=== PATIENT | female | born 1975 | race Caucasian/White ===

== ENCOUNTER 2022-10-22 23:19 | Observation (INO) | payer BC, SELFPAY ==
--- NOTE | ~2022-10-22 | XR_ITS ---
EXAMINATION: XR chest 1V portable DATE: 10/23/2022 01:04 INDICATION: Hyponatremia. TECHNIQUE: A single frontal view of the chest was obtained. COMPARISON: Chest single view 08/28/2017 FINDINGS: The chest demonstrates clear lungs without pneumonia, pleural effusion, or pneumothorax. Th e heart size is normal. IMPRESSION: 1. No acute cardiopulmonary disease. Reviewed, dictated and finalized at location [facility]. [facility] [employer]
[2022-10-22 23:25] VITALS: BP 169/110; PULSE 83; RESP 20; TEMP 36.3; O2SAT 97
--- NOTE | 2022-10-22 23:25 | ED.ABDPAIN ---
HPI - Abdominal Pain General Chief Complaint: Abdominal Pain Stated Complaint: abd pain Time Seen by Provider: 10/22/22 23:25 Source: patient Mode of arrival: ambulatory Limitations: no limitations History of Present Illness HPI narrative: 47-year-old female with obesity, GERD, chronic left hip pain, anxiety, allergic bronchitis presents to the ER with a 10 day history of --intermittent epigastric discomfort. no fever. No nausea / vomiting / diarrhea. She had a stomach flu around 10 days ago. MD elicited complaint: abdominal pain Onset (ago): day(s) ( Off and on for the past 10 days) Pain Consistency: intermittent Location: epigastric Severity: moderate Quality: aching Radiation: none Migration to: no migration Relieving factors: nothing Associated symptoms: denies other symptoms Related Data Hx Last Menstrual Period: 1 year ago Patient : No Home Medications Medication Instructions Recorded Confirmed hydrocodone 5 mg-acetaminophen 325 1 tablet PO Q4H PRN Pain 10/22/22 10/22/22 mg tablet omeprazole magnesium 20 mg 20 mg PO DAILY 10/22/22 10/22/22 tablet,delayed release (Prilosec OTC) Allergies Allergy/AdvReac Type Severity Reaction Status Date / Time No Known Allergies Allergy Verified 10/22/22 23:35 Review of Systems Review of Systems: All systems reviewed & are unremarkable except as noted in HPI and below Constitutional: Constitutional: Reports as per HPI and Reports no additional constitutional complaints Eyes: Eyes: Reports as per HPI and Reports no additional eye complaints ENT: Reports system reviewed and no additional complaints, except as documented and Reports as per HPI Cardiovascular: Cardiovascular: Reports as per HPI and Reports no additional cardiovascular complaints Respiratory: Respiratory: Reports as per HPI and Reports no additional respiratory complaints Gastrointestinal: Gastrointestinal: Reports as per HPI, Reports no additional gastrointestinal complaints and Reports abdominal pain Comments: epigastric abdominal pain Genitourinary: Genitourinary: Reports no additional female genitourinary complaints and Reports as per HPI Musculoskeletal: Musculoskeletal: Reports no additional musculoskeletal complaints and Reports as per HPI Integumentary/Breasts: Skin/Breast: Reports system reviewed and no additional complaints, except as docu and Reports as per HPI Neurologic: Reports system reviewed and no additional complaints, except as documented and Reports as per HPI Psychiatric: Psychiatric: Reports no additional psychiatric complaints and Reports as per HPI Endocrine: Endocrine: Reports no additional endocrine complaints and Reports as per HPI Hematologic/Lymphatic: Hematologic/Lymphatic: Reports no additional hematologic/lymphatic complaints and Reports as per HPI Allergic/Immunologic: Allergic/Immunologic: Reports no additional allergic/immunologic complaints and Reports as per HPI [facility] Past Medical History Medical History (Updated 10/23/22 @ 01:06 by Alhaji Harris MD) Anxiety GERD (gastroesophageal reflux disease) Left hip pain Social History Social History (Updated 10/23/22 @ 01:06 by Alhaji Harris MD) Social History: nonsmoker. No history of alcohol or drug use. Exam Const: General: healthy appearing and no acute distress Nutritional Appearance: well nourished Orientation/consciousness: patient oriented x3 Limitations: no limitations HENMT: Head: normal to inspection Ears: external ears normal Face/Nose/Sinus: Normal external nose present Face and sinus: normal facial exam Mouth: Yes Normal oral and palatal mucosa present Teeth and gingiva: dentition normal Throat: posterior oropharynx normal Eyes: Conjunctivae: conjunctivae normal Pupils: Equal, round and reactive pupils present EOM: EOMs intact bilaterally Direct Ophthalmoscopy: no photophobia Neck: Neck: normal visual inspection, no lymphadenopathy and no men
[2022-10-22 23:56] LABS: Basophils Absolute Auto 0.03 K/mm3 (0.00-0.10); Basophils Percent Auto 0.5 % (0.0-1.0); Eosinophils Absolute Auto 0.05 K/mm3 (0.02-0.50); Eosinophils Percent Auto 0.9 % (1.0-6.0); Hematocrit 40.9 % (35.0-49.0); Hemoglobin 13.2 g/dL (12.0-15.0); Immature Granulocyte Absolute 0.01 K/mm3 (0.00-0.00); Immature Granulocyte Percent A 0.2 % (0.0-0.0); Lymphocytes Absolute Auto 2.87 K/mm3 (1.10-4.50); Lymphocytes Percent Auto 50.7 % (18.0-42.0); Mean Corpuscular HGB Conc 32.3 g/dL (32.0-36.0); Mean Corpuscular Hemoglobin 29.4 pg (27.0-31.0); Mean Corpuscular Volume 91.1 fL (78.0-102.0); Mean Platelet Volume 9.4 fl (9.2-11.8); Monocytes Absolute Auto 0.51 K/mm3 (0.10-0.90); Neutrophils Absolute Auto 2.2 K/mm3 (1.7-7.2); Neutrophils Percent Auto 38.7 % (50.0-70.0); Platelet Count Result 263 K/mm3 (150-420); Red Blood Count 4.49 M/mm3 (4.20-5.40); Red Cell Distribution Width 12.6 % (11.6-14.4); White Blood Count 5.7 K/mm3 (4.8-10.8)
[2022-10-23 00:01] LABS: Add Urine Microscopic? NO; Appearance Urine Clear (Clear); Bilirubin Urine Negative (Negative); Blood Urine Negative (Negative); Color Urine Light Yellow (Yellow); Glucose Urine UA Negative (Negative); Ketones Urine Negative (Negative); Leukocyte Esterase Ur Negative LEU/UL (Negative); Nitrate Urine Negative (Negative); Protein Urine Negative (Negative); Specific Grav Ur 1.015 (1.010-1.020); Urobilinogen Urine 0.2 mg/dL (0.2-1.0); pH Urine 6.5 (5.0-8.0)
[2022-10-23 00:04] LABS: Pregnancy On Board Control Positive; Urine Pregnancy Test Negative
[2022-10-23 00:09] LABS: Prothrombin Time 10.9 Seconds (9.50-12.10)
[2022-10-23 00:17] LABS: Lactic Acid Reflex 0.8 mmol/L (0.4-2.0)
[2022-10-23 00:23] LABS: Alanine Aminotransferase 39 U/L (14-59); Albumin Level 3.4 g/dL (3.4-5.0); Alkaline Phosphatase 67 U/L (46-116); Anion Gap -2 mmol/L (8-16); Aspartate Amino Transferase 29 U/L (15-37); Bilirubin,Total 0.2 mg/dL (0.00-1.00); Blood Urea Nitrogen 10 mg/dL (7-18); Calcium 8.5 mg/dL (8.5-10.1); Carbon Dioxide 31 mmol/L (21-32); Chloride 91 mmol/L (98-108); Estimated CRCL calculation 95 ml/min; Estimated Glomerular Filt Rate > 60; Glucose 96 mg/dL (70-99); Lipase 21 U/L (16-77); Osmolality Calculated 249 mOsm/kg (285-295); Potassium 3.1 mmol/L (3.5-5.1); Total Protein 7.7 g/dL (6.4-8.2); Troponin I 4.1 ng/L (0.00-60.4)
[2022-10-23 00:26] LABS: Sodium 120 mmol/L (136-145)
--- NOTE | 2022-10-23 00:40 | PC.NURSE ---
Pt states she has been drinking almost 2 gallons of water per day to help alleviate her abd cramps and pain. ERP Dr Harris and this RN explained hyponatremia to pt and her sister in length. Pt reports some pain still in mid abdomen c tightness feeling and uncomfortable when trying to lie down. BP noted to still elevated, no new orders from Dr Harris at this time. POC discussed for admission.
--- NOTE | 2022-10-23 00:59 | PCDIET ---
Call placed to [facility] at [facility] per Dr Harris request to try to transfer to [facility], report given, advised to call [facility] for admission here if possible. Call then placed to [facility] at request and Dr. Harris spoke to [place], orders received to admit at [facility]. Orders will be placed. Pt sitting bedside upright in position of comfort and agreeable c POC.
--- NOTE | 2022-10-23 01:00 | PC.NURSE ---
Pt sitting upright in bed, c/o some tightness in mid abd. and feels better to sit upright. Explained about POC for admission or transfer if needed. Call placed to Maris [facility] [place], report given and per request to call [facility] for possible admission to [facility]. Call then placed to [facility] who spoke c Dr Harris and orders recieved to admit. Orders will be placed for 23 hr. obs and pt agreeable to POC.
[2022-10-23] MEDS: POTASSIUM CHLORIDE 20 MEQ TABLET 40 MEQ PO (01:10)
[2022-10-23] MEDS: ONDANSETRON INJ 4 MG/2 ML VIAL IV PUSH (01:12)
[2022-10-23] MEDS: PANTOPRAZOLE SODIUM IV 40 MG VIAL IV PUSH (01:12)
[2022-10-23] MEDS: HYDROmorphone HCL INJ (*CRX) 2 MG/ML VIAL 0.5 MG IV PUSH (01:12)
[2022-10-23 01:20] VITALS: BP 158/102; PULSE 84; RESP 20; TEMP 36.6; O2SAT 97
[2022-10-23 01:20] LABS: Thyroid Stimulating Hormone 5.01 uIU/mL (0.36-3.74)
--- NOTE | 2022-10-23 01:39 | PC.NURSE ---
Pt ambulated to w/c for admission to Rm 208.
[2022-10-23 01:46] VITALS: BMI 59.4
--- NOTE | 2022-10-23 01:50 | ADMGEN ---
This patient, Kassi Uribe, was admitted to 2nd Floor Room 208-1. Patient/family oriented to hospital policies and general routines including ID bracelet, bed and alarms, visiting hours, pain management, procedures, bathroom and other care routines, personal items, smoking policy, room service/diet, and visiting hours. Information on how to activate the Rapid Response Team has been discussed. Patient/Family are encouraged to report perceived risks to care and to ask questions if they do not understand what they are told or what they should do.
[2022-10-23 04:00] VITALS: BP 146/86; PULSE 74; PULSE 85; RESP 18; TEMP 36.4; O2SAT 97
[2022-10-23 07:58] VITALS: BP 123/69; PULSE 78; PULSE 90; RESP 18; TEMP 36.3; O2SAT 98
[2022-10-23 08:33] LABS: Anion Gap 9 mmol/L (8-16); Blood Urea Nitrogen 7 mg/dL (7-18); Calcium 9.1 mg/dL (8.5-10.1); Carbon Dioxide 29 mmol/L (21-32); Chloride 104 mmol/L (98-108); Estimated CRCL calculation 107 ml/min; Estimated Glomerular Filt Rate > 60; Glucose 104 mg/dL (70-99); Osmolality Calculated 292 mOsm/kg (285-295); Potassium 4.1 mmol/L (3.5-5.1); Sodium 142 mmol/L (136-145)
[2022-10-23] MEDS: ENOXAPARIN 40 MG/0.4 ML SYRINGE SUB-Q (08:44)
[2022-10-23] MEDS: PANTOPRAZOLE 40 MG TABLET PO (08:45)
[2022-10-23] MEDS: HYDROcodone/acetaminophen (*CRX) 5-325 MG TABLET 1 TAB PO (08:45)
--- NOTE | 2022-10-23 11:28 | PM.SD2 ---
Same Day Admit/Disch: HPI History of Present Illness Chief complaint: HYPONATREMIA HYPOKALEMIA EPIGASTRIC Narrative: this is a 47-year-old female presented to emergency department with complaints of epigastric pain that she has had for several weeks. Patient has a past medical history of anxiety, GERD, left hip pain and morbidly obese. according to patient she has had a long history of having acid reflux and has taken a members all for several years as a result of her acid reflux. Patient notes that she has noticed that her omeprazole is not working as well as it once did. Patient notes that she drank plenty of water to attempt to resolve her epigastric symptoms. patient's WBC is 5.7, hemoglobin 13.2, have adequate 40.9, 263 platelets, sodium 120, potassium 3.1, continued, creatinine 0 9 6 glucose 96. patient was admitted due to her electrolyte imbalance she was put on a fluid restriction her a.m. labs were within normal limits. Patient is not complaining of any epigastric pain she did receive pantoprazole which worked better for acid reflux. She did have elevated TSH start patient on the with levothyroxine. Notify her primary care physician informed them of her elevated TSH level and start of levothyroxine. Patient will get a repeat TSH in 6 weeks. The patient denies SOB, CP, palpitation, extremity numbness, lightheadedness, dizziness, constipation, diarrhea, chills, or fever. [facility] Past Medical History Medical History (Updated 10/23/22 @ 11:33 by CLAU Hunt) Anxiety GERD (gastroesophageal reflux disease) Left hip pain Social History Social History (Updated 10/23/22 @ 01:06 by Alhaji Harris MD) Social History: nonsmoker. No history of alcohol or drug use. Smoking status: Never smoker Second hand tobacco smoke exposure: No Alcohol intake: former Substance use: never Substance use type: does not use Lack of Transportation: No Lack of Food: Never True Current Housing: I Have Housing Concerned About Future Housing: No Difficulty Paying Gas/Electric Bills: No Difficulty Paying for Meds: No Currently Unemployed: No Education: Trade/Vocational Certificate Difficulty w/ Childcare or Family Care: No Spiritual care concerns: No Same Day Admit/Disch: Med Pre-admit Medications Home Medications Medication Instructions Recorded Confirmed Type hydrocodone 5 mg-acetaminophen 325 1 tablet PO Q4H PRN Pain 10/22/22 10/22/22 History mg tablet levothyroxine 25 mcg tablet 25 mcg PO DAILY #90 tabs 10/23/22 Rx pantoprazole 40 mg tablet,delayed 40 mg PO QAM #60 tabs 10/23/22 Rx release Exam Narrative: GENERAL: This is a well-nourished, well-developed patient, in no apparent distress. HEAD: normocephalic, atraumatic. EYES: PERRL. Sclera clear/white. Vision is grossly intact. EARS: External ears normal, auditory canals clear and without drainage, TMs normal without perforation. Hearing grossly intact. NOSE: External nose normal with no obvious nasal discharge, nares without redness, no rhinorrhea. THROAT: Mucous membranes moist, posterior pharynx clear. NECK: Neck supple, non-tender without lymphadenopathy, masses or thyromegaly. CARDIOVASCULAR: Regular rate and rhythm without murmurs, gallops, or rubs. RESPIRATORY: Clear to auscultation. Breath sounds equal bilaterally. No wheezes, rales, or rhonchi. GASTROINTESTINAL: Abdomen soft, non-tender, nondistended. Bowel sounds are active. No hepato-splenomegaly, or palpable masses. No guarding. SKIN: warm, intact with no suspicious lesions or rash, good texture and turgor. NEURO: awake, alert, and oriented to person, place and time. There were no obvious focal neurologic abnormalities. EXTREMITIES: Normal range of motion. No edema. No calf tenderness. DS: Data Data Completed and Pending Labs on day of discharge: Labs from last 24 hours 10/23/22 10/23/22 10/22/22 08:16 01:19 23:49 WBC RBC Hgb Hct
[2022-10-23 12:00] VITALS: BP 123/74; PULSE 66; RESP 18; TEMP 36.6; O2SAT 96
--- NOTE | 2022-10-23 12:35 | PC.NURSE ---
Discharge instructions given to patient. Patient voiced understanding. Personal items sent home with patient. Patient left floor in w/c and left hospital property in privately owned vehicle. Prescriptions transmitted to [facility] in [place].
--- NOTE | 2022-10-24 11:52 | PC.NURSE ---
Pt states she received and understood her discharge instructions. Also states everything was great .
== END 2022-10-23 12:35 | disposition home or self-care (01) ==
LOC: CHSED 10-23 00:56 → CHS2ND 10-23 01:37
PROVIDERS: Admitting Provider Internal Medicine; Emergency Provider Internal Medicine Critical Care Medicine; PCP Family Medicine; Visit Provider Internal Medicine
DX: E87.70 Fluid overload, unspecified (principal); E87.1 Hypo-osmolality and hyponatremia; E87.6 Hypokalemia; R10.13 Epigastric pain; K21.9 Gastro-esophageal reflux disease without esophagitis; E03.9 Hypothyroidism, unspecified; E66.9 Obesity, unspecified; M25.552 Pain in left hip; G89.29 Other chronic pain; F41.9 Anxiety disorder, unspecified
CPT/HCPCS: 36415; 71045; 80048; 80053; 81003; 81025; 83605; 83690; 84443; 84484; 85025; 85610; 96372; 96374; 96375; 99285; A9270; C9113; G0378; J1170; J1650; J2405

== ENCOUNTER 2023-10-21 08:53 | Outpatient (CLI) | payer BC, SELFPAY ==
--- NOTE | 2023-10-22 11:59 | WPDHOLTEREM ---
Holter/Event Monitor Holter/Event Monitor Date of procedure: 10/21/23 Holter/Event Procedure: 24 Hr Holter Monitor Indications: Palpitations Conclusion: 1. 24 hour holter monitor on 10/21/23. 2. Underlying rhythm is sinus rhythm. HR range 58-135 bpm; average HR 84 bpm. 3. There are 5 premature supraventricular complexes. No supraventricular tachycardia. 4. No premature ventricular complexes. No ventricular tachycardia. 5. No sinoatrial or atrioventricular blocks. No significant pauses greater than 2 seconds. 6. No symptoms available for correlation.
== END 2023-10-21 08:54 | disposition home or self-care (01) ==
LOC: CHSCARD 08:55
PROVIDERS: PCP Registered Nurse; Visit Provider Registered Nurse
DX: R00.2 Palpitations (principal)
CPT/HCPCS: 93225; 93226

== ENCOUNTER 2024-06-01 05:04 | Emergency (ER) | payer BC, SELFPAY ==
[2024-06-01 05:10] VITALS: BP 159/103; PULSE 85; RESP 20; TEMP 36.2; O2SAT 96
--- NOTE | 2024-06-01 05:19 | ED.URI ---
HPI - URI/Sore Throat General Chief Complaint: Upper Respiratory Infection Stated Complaint: Upper Respiratory Time Seen by Provider: 06/01/24 05:18 Source: patient Mode of arrival: ambulatory Limitations: no limitations History of Present Illness HPI Narrative: Patient is a 49-year-old female with upper respiratory congestion and pain. She is having lots of chest upper congestion and sinus pain and pressure. This has all been going on for the last 3-4 days. She said she tried [id number] Mucinex without help. She also tried her albuterol inhaler which is not helping. She has baseline seasonal asthma. MD elicited complaint: cough, nasal congestion and sinus pain Onset (ago): day(s) (3) Consistency: constant and progressively worsening Severity: moderate Pain scale (0-10): 3 Description of mucous: clear, watery and yellow Able to tolerate fluids by mouth: Yes Exacerbating factors: exertion Relieving factors: OTC cold medicine, nasal spray ( Flonase) and cough suppressant Associated symptoms: myalgias, nasal congestion and sore throat Treatments prior to arrival: acetaminophen, ibuprofen and cold medicine Related Data Home Medications Medication Instructions Recorded Confirmed hydrocodone 5 mg-acetaminophen 325 1 tablet PO Q4H PRN Pain 10/22/22 06/01/24 mg tablet alprazolam 0.5 mg tablet 0.5 mg PO PRN 05/18/24 06/01/24 Allergies Allergy/AdvReac Type Severity Reaction Status Date / Time No Known Allergies Allergy Verified 10/22/22 23:35 Review of Systems Review of Systems: All systems reviewed & are unremarkable except as noted in HPI and below Constitutional: Constitutional: Reports no additional constitutional complaints Eyes: Eyes: Reports no additional eye complaints ENT: Reports system reviewed and no additional complaints, except as documented Cardiovascular: Cardiovascular: Reports no additional cardiovascular complaints Respiratory: Respiratory: Reports no additional respiratory complaints Gastrointestinal: Gastrointestinal: Reports no additional gastrointestinal complaints Genitourinary: Genitourinary: Reports no additional female genitourinary complaints Musculoskeletal: Musculoskeletal: Reports no additional musculoskeletal complaints Integumentary/Breasts: Skin/Breast: Reports system reviewed and no additional complaints, except as docu Neurologic: Reports system reviewed and no additional complaints, except as documented Psychiatric: Psychiatric: Reports no additional psychiatric complaints Endocrine: Endocrine: Reports no additional endocrine complaints Hematologic/Lymphatic: Hematologic/Lymphatic: Reports no additional hematologic/lymphatic complaints Allergic/Immunologic: Allergic/Immunologic: Reports no additional allergic/immunologic complaints PMFSH Past Medical History Medical History Anxiety GERD (gastroesophageal reflux disease) Left hip pain Social History Social History Social History: nonsmoker. No history of alcohol or drug use. Smoking status: Never smoker Second hand tobacco smoke exposure: No Alcohol intake: never Substance use: never Substance use type: does not use Lack of Transportation: No Lack of Food: Never True Current Housing: I Have Housing Concerned About Future Housing: No Difficulty Paying Gas/Electric Bills: No Difficulty Paying for Meds: No Currently Unemployed: No Education: Trade/Vocational Certificate Difficulty w/ Childcare or Family Care: No Living arrangements: with family Spiritual care concerns: No Exam Const: General: healthy appearing Nutritional Appearance: well nourished Orientation/consciousness: patient oriented x3 HENMT: Head: normal to inspection Ears: external ears normal Face/Nose/Sinus: Normal external nose present Other: tender frontal and maxillary type sinus
[2024-06-01] MEDS: predniSONE 20 MG TABLET 40 MG PO (05:33)
[2024-06-01] MEDS: AMOXICILLIN/CLAVULANATE K 875-125 MG TAB 1 TABLET PO (05:33)
[2024-06-01 05:52] VITALS: BP 150/99; PULSE 87; RESP 18; O2SAT 95
== END 2024-06-01 05:52 | disposition home or self-care (01) ==
LOC: CHSED 05:40
PROVIDERS: Emergency Provider Emergency Medicine; PCP Registered Nurse
DX: J40 Bronchitis, not specified as acute or chronic (principal); J32.9 Chronic sinusitis, unspecified; Z79.891 Long term (current) use of opiate analgesic
CPT/HCPCS: 99283; A9270; J7512

== ENCOUNTER 2024-06-15 00:59 | Day surgery (SDC) | payer BC, SELFPAY ==
[2024-05-18 16:15] VITALS: BMI 59.8
[2024-06-15 07:13] VITALS: BP 153/91; PULSE 84; RESP 17; TEMP 35.9; O2SAT 98; BMI 58.2
[2024-06-15] MEDS: LACTATED RINGERS 1,000 ML 150 ML IV CONT (07:24)
--- NOTE | 2024-06-15 07:56 | WPDANESEPPF ---
Anes - Initial Pre Proc Eval Procedure: Operation Date: 06/15/24 08:30 Proposed Procedures p Colonoscopy - Jose Leonard MD Date/Time: 06/15/24 07:56 Surgeon: Jose Leonard MD Pre Op Diagnosis: other fecal abnormalities Patient Data Age: 49 Gender: F Height: 1.63 m Weight: 154 kg Last Vital Signs Temp 96.7 F L 06/15/24 07:13 Pulse 84 06/15/24 07:13 Resp 17 06/15/24 07:13 BP 153/91 H 06/15/24 07:13 Pulse Ox 98 06/15/24 07:13 O2 Del Method Room Air 06/15/24 07:13 Allergies Allergy/AdvReac Type Severity Reaction Status Date / Time No Known Allergies Allergy Verified 06/15/24 07:10 Home Medications Medication Instructions Recorded Confirmed Type hydrocodone 5 mg-acetaminophen 325 1 tablet PO Q4H PRN Pain 10/22/22 06/15/24 History mg tablet levothyroxine 25 mcg tablet 25 mcg PO DAILY #90 tabs 10/23/22 06/15/24 Rx pantoprazole 40 mg tablet,delayed 40 mg PO QAM #60 tabs 10/23/22 06/15/24 Rx release alprazolam 0.5 mg tablet 0.5 mg PO PRN 05/18/24 06/15/24 History Patient hx anesthesia problems: none Family hx anesthesia problems: none Results Review: All pre-operative results and documents have been reviewed as part of the pre-operative evaluation. [facility] Past Medical History Medical History Anxiety GERD (gastroesophageal reflux disease) Left hip pain Social History Social History Social History: nonsmoker. No history of alcohol or drug use. Smoking status: Never smoker Second hand tobacco smoke exposure: No Alcohol intake: never Substance use: never Substance use type: does not use Lack of Transportation: No Lack of Food: Never True Current Housing: I Have Housing Concerned About Future Housing: No Difficulty Paying Gas/Electric Bills: No Difficulty Paying for Meds: No Currently Unemployed: No Education: Trade/Vocational Certificate Difficulty w/ Childcare or Family Care: No Living arrangements: with family Spiritual care concerns: No Anes - Eval Final PreProcedure Day of Procedure 06/15/24 07:56 Patient weight: super morbidly obese Heart: regular rate and rhythm Lungs: clear to auscultation Airway: Mallampati scale class III Neurological: alert and oriented Last oral intake: >/= 8 hours ASA classification: III Emergent: no Anesthetic plan: proceed Anesthesia type and monitoring: general GIVS and standard monitoring Results Review: All pre-operative results and documents have been reviewed as part of the pre-operative evaluation. Informed Consent: The patient's anesthetic plan and its attendant risks and benefits were discussed with the patient/family/POA. Questions were solicited and answers provided to the satisfaction of the patient/family/POA.
--- NOTE | 2024-06-15 08:18 | PM.HPGS ---
History of Present Illness History of Present Illness Consent: Risks, benefits, and alternatives have been discussed and questions answered. Patient agrees to proceed with procedure. Chief complaint: other fecal abnormalities Narrative: Kassi Uribe is a 49 year old female here for first colonoscopy, + cologuard Review of Systems Review of Systems: All systems reviewed & are unremarkable except as noted in HPI and below PMFSH Past Medical History Medical History (Updated 06/15/24 @ 08:19 by Jose Leonard MD) Anxiety GERD (gastroesophageal reflux disease) Left hip pain Positive colorectal cancer screening using Cologuard test Social History Social History Social History: nonsmoker. No history of alcohol or drug use. Smoking status: Never smoker Second hand tobacco smoke exposure: No Alcohol intake: never Substance use: never Substance use type: does not use Lack of Transportation: No Lack of Food: Never True Current Housing: I Have Housing Concerned About Future Housing: No Difficulty Paying Gas/Electric Bills: No Difficulty Paying for Meds: No Currently Unemployed: No Education: Trade/Vocational Certificate Difficulty w/ Childcare or Family Care: No Living arrangements: with family Spiritual care concerns: No Meds Home Medications and Allergies Home Medications Medication Instructions Recorded Confirmed Type hydrocodone 5 mg-acetaminophen 325 1 tablet PO Q4H PRN Pain 10/22/22 06/15/24 History mg tablet levothyroxine 25 mcg tablet 25 mcg PO DAILY #90 tabs 10/23/22 06/15/24 Rx pantoprazole 40 mg tablet,delayed 40 mg PO QAM #60 tabs 10/23/22 06/15/24 Rx release alprazolam 0.5 mg tablet 0.5 mg PO PRN 05/18/24 06/15/24 History Allergies Allergy/AdvReac Type Severity Reaction Status Date / Time No Known Allergies Allergy Verified 06/15/24 07:10 Vital Signs Vital Signs - 24 hr 06/15/24 07:13 Temperature 96.7 F L Pulse Rate 84 Respiratory Rate 17 Blood Pressure 153/91 H Pulse Oximetry 98 Oxygen Delivery Room Air Exam Const: General: comfortable and no acute distress HENMT: Face/Nose/Sinus: Normal nares present Eyes: General: appearance normal, both eyes and all related structures Neck: Neck: no JVD Resp: Auscultation: clear to auscultation bilaterally Cardio: Rate: regular rate Rhythm: regular rhythm GI: Inspection: non-distended GI Palp: Yes Soft to palpation Skin: General skin exam: normal color Neuro: General: gait normal Speech: normal speech Extrem: General: normal to inspection Psych: Mental Status: mental status grossly normal Assessment and Plan Assessment and plan (1) Positive colorectal cancer screening using Cologuard test: Code(s): R19.5 - Other fecal abnormalities Status: Acute Assessment and Plan: colonoscopy
[2024-06-15 08:49] VITALS: BP 126/62; PULSE 82; RESP 25; O2SAT 95
[2024-06-15 08:59] VITALS: BP 141/95; PULSE 85; RESP 20; O2SAT 95
[2024-06-15 09:09] VITALS: BP 121/75; PULSE 77; RESP 18; O2SAT 98
== END 2024-06-15 09:19 | disposition home or self-care (01) ==
PROVIDERS: PCP Registered Nurse; Visit Provider Internal Medicine Gastroenterology
PROC: 0DJD8ZZ Inspection of Lower Intestinal Tract, Via Natural or Artificial Opening Endoscopic (ICD-10-PCS; CPT 45378; principal; 2024-06-15 08:30)
DX: D12.4 Benign neoplasm of descending colon (principal); D12.5 Benign neoplasm of sigmoid colon; K64.8 Other hemorrhoids; K21.9 Gastro-esophageal reflux disease without esophagitis; F41.9 Anxiety disorder, unspecified; E66.01 Morbid (severe) obesity due to excess calories; Z68.43 Body mass index [BMI] 50.0-59.9, adult; Z79.891 Long term (current) use of opiate analgesic
CPT/HCPCS: 45385; 88305; J2704; J7120

== ENCOUNTER 2024-11-23 17:03 | Emergency (ER) | payer BC, SELFPAY ==
[2024-11-23] VITALS (8 sets, daily range): BP systolic 138–170; BP diastolic 77–98; PULSE 86–102; RESP 16–21; TEMP 36.4–36.7; O2SAT 97–100
--- NOTE | 2024-11-23 17:28 | ED.GENADULT ---
HPI - General Adult General Chief complaint: Dizziness Stated complaint: DIZZY, HTN Time Seen by Provider: 11/23/24 17:07 History of Present Illness HPI narrative: Kassi is a 49F with a PMH of electrolyte disturbances, hypothyroidism, anxiety, and GERD that presented to the ED with lightheadedness that has been getting worse for a few days. It is not like her previous episodes of vertigo. She just feel lightheaded but no spinning sensation. She had palpations over the weekend. She has been sick on and off for the last 6 weeks and has been on antibiotics and steroids. No CP, vomiting, dyspnea or syncope. Related Data Home Medications ?Medication ?Instructions ?Recorded ?Confirmed ?Last Taken ?Type hydrocodone 5 mg-acetaminophen 325 1 tablet PO Q4H PRN Pain 10/22/22 06/15/24 Unknown History mg tablet alprazolam 0.5 mg tablet 0.5 mg PO PRN 05/18/24 06/15/24 Unknown History Allergies Allergy/AdvReac Type Severity Reaction Status Date / Time No Known Allergies Allergy Verified 11/23/24 17:25 Review of Systems Review of Systems: All systems reviewed & are unremarkable except as noted in HPI and below PMFSH Past Medical History Medical History Positive colorectal cancer screening using Cologuard test Anxiety Left hip pain GERD (gastroesophageal reflux disease) Social History Social History Social History: nonsmoker. No history of alcohol or drug use. Smoking status: Never smoker Second hand tobacco smoke exposure: No Alcohol intake: never Substance use: never Substance use type: does not use Lack of Transportation: No Lack of Food: Never True Current Housing: I Have Housing Concerned About Future Housing: No Difficulty Paying Gas/Electric Bills: No Difficulty Paying for Meds: No Currently Unemployed: No Education: Trade/Vocational Certificate Difficulty w/ Childcare or Family Care: No Living arrangements: with family Spiritual care concerns: No Exam Const: General: cooperative, healthy appearing, comfortable, no acute distress, well developed, alert, awake and Physically active Orientation/consciousness: oriented to person, oriented to place and oriented to time HENMT: Head: normal to inspection, normocephalic and atraumatic Ears: hearing grossly normal bilaterally and external ears normal Face/Nose/Sinus: Normal external nose present Eyes: General: appearance normal, both eyes and all related structures Periorbital: periorbital findings normal Sclera: sclerae normal Pupils: Equal, round and reactive pupils present Neck: Neck: normal visual inspection Chest: Chest palpation & inspection: normal inspection of the chest Resp: Effort & Inspection: normal respiratory effort, able to speak in complete sentences and no respiratory distress Auscultation: clear to auscultation bilaterally Cardio: Jugular venous distension: no JVD Rate: regular rate Rhythm: regular rhythm GI: Inspection: normal to inspection GI Palp: Yes Soft to palpation Auscultation: normal bowel sounds Skin: General skin exam: normal color and no rashes or lesions noted Neuro: General: oriented to person, oriented to place and oriented to time Cranial nerves: Yes Equal, round and reactive pupils present Extrem: General: normal to inspection Course Course Emergency Course: ordered EKG and labs as well as viral testing EKG showed NSR with a rate of 93, normal axis, No ST elevation/depression, no ectopy Labs largely unremarkable. Viral Testing negative. Given the negative workup and history of anxiety symptoms are most likely d/t her anxiety. Vital Signs Vital signs: Vital Signs Oxygen Delivery Room Air 11/23/24 17:15 Temperature 97.6 F 11/23/24 17:18 Pulse Rate 96 11/23/24 18:32 Respiratory Rate 20 11/23/24 18:32 Blood Pressure 148/77 H 11/23/24 18:32 Pulse Oximetry 100 11/23/24 18:32 Oxygen Delivery Room Air 11/23/24 17:18 Medical Decision Making Vital Signs Vital Signs: Vital Signs Oxygen Delivery Room Air 11/23/24 17:15 Temperature 97.6 F 11/23/24 17:18 Pulse Rate 96 11/23/24 18:32 Respiratory Rate 20 11/23/24 18:32 Blood Pressure 148/77 H 11/23/24 18:32 Pulse Oximetry 100 11/23/24 18:32 Oxygen Delivery Room Air 11/23/24 17:18 Lab Data 11/23/24 18:08 11/23/24 18:08 Labs: Lab Results 11/23/24 11/23/24 Range/Units 17:53 18:08 WBC 5.6 (4.8-10.8) K/mm3 RBC 4.53 (4.20-5.40) M/mm3 Hgb 13.5 (12.0-15.0) g/dL Hct 42.0 (35.0-49.0) % MCV 92.7 (78.0-102.0) fL MCH 29.8 (27.0-31.0) pg MCHC 32.1 (32-36) g/dL RDW 12.4 (11.6-14.4) % Plt Count 244 (150-420) K/mm3 MPV 9.6 (9.2-11.8) fl Immature Gran % (Auto) 0.4 H (0.0-0.0) % Neut % (Auto) 52.6 (50.0-70.0) % Lymph % (Auto) 36.4 (18.0-42.0) % Gem % (Auto) 9.2 (2.0-11.0) % Eos % (Auto) 0.9 L (1.0-6.0) % Baso % (Auto) 0.5 (0.0-1.0) % Lymph # (Auto) 2.02 (1.10-4.50) K/mm3 Gem # (Auto) 0.51 (0.10-0.90) K/mm3 Eos # (Auto) 0.05 (0.02-0.50) K/mm3 Baso # (Auto) 0.03 (0.00-0.10) K/mm3 Abs Immat Gran (auto) 0.02 H (0.00-0.00) K/mm3 Absolute Neuts (auto) 2.92 (1.70-7.20) K/mm3 Absolute Nucleated RBC 0.00 (0.00-0.00) K/mm3 Nucleated RBC % 0.0 (0-0.0) % Sodium 141 (136-145) mmol/L Potassium 3.6 (3.5-5.1) mmol/L Chloride 103 (98-108) mmol/L Carbon Dioxide 28 (21-32) mmol/L Anion Gap 10 (4-12) mmol/L BUN 7 (7-18) mg/dL Creatinine 0.84 (0.55-1.02) mg/dL Estim Creat Clear Calc 105 ml/min Estimated GFR > 60 (59 - ) Glucose 121 H (70-99) mg/dL Calculated Osmolality 291 (285-295) mOsm/kg Calcium 9.4 (8.5-10.1) mg/dL Total Bilirubin 0.2 (0.00-1.00) mg/dL AST 21 (15-37) U/L ALT 31 (14-59) U/L Alkaline Phosphatase 68 (46-116) U/L Troponin I < 4.0 (0.00-60.4) ng/L Total Protein 7.7 (6.4-8.2) g/dL Albumin 3.3 L (3.4-5.0) g/dL Influenza A (RT-PCR) Negative (Negative) Influenza B (RT-PCR) Negative (Negative) RSV (RT-PCR) Negative (Negative) SARS-CoV-2 RNA (RT-PCR) Negative (Negative) Discharge Plan Discharge Clinical Impression: Lightheadedness, Anxiety Patient Disposition: Home, Self-Care Condition: Stable Instructions: Lightheadedness (ED) Patient Language: Irish Prescriptions: No Action hydrocodone-acetaminophen 5-325 mg Tablet 1 tablet PO Q4H PRN (Reason: Pain) pantoprazole 40 mg tablet,delayed release (DR/EC) 40 mg PO QAM Qty: 60 0RF levothyroxine 25 mcg tablet 25 mcg PO DAILY Qty: 90 0RF alprazolam 0.5 mg tablet 0.5 mg PO PRN Follow-up/Referrals: Bibiana,EDWAR Oconnor [Primary Care Provider] -
[2024-11-23 18:16] LABS: Basophils Absolute Auto 0.03 K/mm3 (0.00-0.10); Basophils Percent Auto 0.5 % (0.0-1.0); Eosinophils Absolute Auto 0.05 K/mm3 (0.02-0.50); Eosinophils Percent Auto 0.9 % (1.0-6.0); Hemoglobin 13.5 g/dL (12.0-15.0); Immature Granulocyte Absolute 0.02 K/mm3 (0.00-0.00); Immature Granulocyte Percent A 0.4 % (0.0-0.0); Lymphocytes Absolute Auto 2.02 K/mm3 (1.10-4.50); Lymphocytes Percent Auto 36.4 % (18.0-42.0); Mean Corpuscular HGB Conc 32.1 g/dL (32-36); Mean Corpuscular Hemoglobin 29.8 pg (27.0-31.0); Mean Corpuscular Volume 92.7 fL (78.0-102.0); Mean Platelet Volume 9.6 fl (9.2-11.8); Monocytes Absolute Auto 0.51 K/mm3 (0.10-0.90); Monocytes Percent Auto 9.2 % (2.0-11.0); Neutrophils Absolute Auto 2.92 K/mm3 (1.70-7.20); Neutrophils Percent Auto 52.6 % (50.0-70.0); Platelet Count Result 244 K/mm3 (150-420); Red Blood Count 4.53 M/mm3 (4.20-5.40); Red Cell Distribution Width 12.4 % (11.6-14.4); White Blood Count 5.6 K/mm3 (4.8-10.8)
--- NOTE | 2024-11-23 18:34 | PC.NURSE ---
PT UP TO RR WITHOUT DIFFICULTY. PT IS AWAITING RESULTS AT THIS TIME. DENIES ANY NEEDS OR COMPLAINTS. WILL CONTINUE TO MONITOR.
[2024-11-23 18:35] LABS: Alanine Aminotransferase 31 U/L (14-59); Albumin Level 3.3 g/dL (3.4-5.0); Alkaline Phosphatase 68 U/L (46-116); Anion Gap 10 mmol/L (4-12); Aspartate Amino Transferase 21 U/L (15-37); Bilirubin,Total 0.2 mg/dL (0.00-1.00); Blood Urea Nitrogen 7 mg/dL (7-18); Calcium 9.4 mg/dL (8.5-10.1); Carbon Dioxide 28 mmol/L (21-32); Chloride 103 mmol/L (98-108); Estimated CRCL calculation 105 ml/min; Estimated Glomerular Filt Rate > 60; Glucose 121 mg/dL (70-99); Osmolality Calculated 291 mOsm/kg (285-295); Potassium 3.6 mmol/L (3.5-5.1); Sodium 141 mmol/L (136-145); Total Protein 7.7 g/dL (6.4-8.2)
[2024-11-23 18:41] LABS: SARS-CoV-2 RNA PCR Negative (Negative)
[2024-11-23 18:43] LABS: Influenza A QL RT-PCR Negative (Negative); Influenza B QL RT-PCR Negative (Negative); RSV RNA, RT-PCR Negative (Negative)
[2024-11-23 18:43] LABS: Troponin I < 4.0 ng/L (0.00-60.4)
== END 2024-11-23 19:04 | disposition home or self-care (01) ==
PROVIDERS: Emergency Provider Family Medicine; PCP Registered Nurse
DX: R42 Dizziness and giddiness (principal); F41.9 Anxiety disorder, unspecified; E03.9 Hypothyroidism, unspecified; I10 Essential (primary) hypertension; Z20.822 Contact with and (suspected) exposure to COVID-19
CPT/HCPCS: 36415; 80053; 84484; 85025; 87637; 93005; 99284